=== PATIENT | male | born 1960 | race Caucasian/White ===

== ENCOUNTER 2017-05-21 12:19 | Emergency (ER) | payer SELFPAY ==
[~2017-05-21] VITALS: Ht 180.3 cm; Wt 95.0 kg
[2017-05-21 12:20] VITALS: BP 108/65
[2017-05-21] MEDS ORDERED: LITH150C PO (12:22)
[2017-05-21] MEDS ORDERED: LORAZEPAM 1MG TABLET PO ONE (14:15)
== END 2017-05-21 14:48 | disposition home or self-care (01) ==
LOC: ER 12:30
DX: G89.29 Other chronic pain (principal); M54.5 Low back pain; F41.9 Anxiety disorder, unspecified; F31.9 Bipolar disorder, unspecified; Z88.0 Allergy status to penicillin; Z91.013 Allergy to seafood
CPT/HCPCS: 99283

== ENCOUNTER 2017-06-03 13:47 | Emergency (ER) | payer MEDICARE, MEDICAID ==
[~2017-06-03] VITALS: Ht 177.8 cm; Wt 82.0 kg
[~2017-06-03 13:47] MED LIST: LITH150C PO
[2017-06-03] MEDS ORDERED: ONDANSETRON HCL 4MG/2ML VIAL IV STA (14:11)
[2017-06-03] MEDS ORDERED: KETOROLAC 30MG/ML VIAL IV STA (14:11)
[2017-06-03] MEDS ORDERED: MORPHINE SULFATE 10 MG/ML CPJ IV ONE (14:15)
[2017-06-03] MEDS ORDERED: SODIUM CHLORIDE 0.9% 1000ML BAG (SEPSIS BOLUS) IV ONE (14:15)
[2017-06-03] MEDS ORDERED: VANCOMYCIN 1 G PREMIX 200 ML IV ONE (14:15)
[2017-06-03] MEDS ORDERED: LEVOFLOXACIN 750MG PREMIX 150 ML IV ONE (14:15)
[2017-06-03 14:53] LABS: BASOPHILS % 0.4 % (0.0-2.0); HEMATOCRIT. 42.2 % (42.0-52.0); HEMOGLOBIN. 13.7 g/dL (14.0-18.0); LYMPHOCYTES % 22.5 % (20.0-50.0); MEAN CORPUSCULAR HEMOGLOBIN 30.2 pg (28.0-32.0); MEAN CORPUSCULAR VOLUME 92.9 fL (80.0-94.0); MEAN PLATELET VOLUME 8.1 fl (7.4-10.4); MONOCYTES % 3.5 % (2.0-8.0); NEUTROPHILS % 71.6 % (40.0-76.0); PLATELET 205 x1000/uL (130-400); RED BLOOD CELL COUNT 4.54 mill/uL (4.7-6.1); RED CELL DISTRIBUTION WIDTH 13.7 % (11.6-14.6)
[2017-06-03 14:57] LABS: D-DIMER 1.1 mg/L FEU (<0.50); PROTHROMBIN TIME 10.3 sec (9.4-11.6)
[2017-06-03 15:06] LABS: CARBON DIOXIDE 26 mEq/L (21-32); CHLORIDE 107 mEq/L (98-107); ETHANOL BLOOD < 10 mg/dL; TROPONIN I < 0.02 ng/mL (0.00-0.04)
[2017-06-03 16:13] VITALS: BP 119/71
[2017-06-03] MEDS ORDERED: GUAIFENESIN 200MG/10ML SUGAR FREE UDC PO PRN (17:15)
[2017-06-03] MEDS ORDERED: VANCOMYCIN 1 G PREMIX 200 ML IV SCH (17:15)
[2017-06-03] MEDS ORDERED: ACETAMINOPHEN 325MG TABLET PO PRN (17:15)
[2017-06-03] MEDS ORDERED: ONDANSETRON HCL 4MG/2ML VIAL IV PRN (17:15)
[2017-06-03] MEDS ORDERED: PIPERACILLIN/TAZ 3.375G PREMIX 50 ML IV SCH ×2 (17:15→18:00)
[2017-06-03] MEDS ORDERED: DOCUSATE SODIUM 100MG CAPSULE PO PRN (17:15)
[2017-06-03] MEDS ORDERED: CLONIDINE 0.1MG TABLET PO PRN (17:15)
[2017-06-03] MEDS ORDERED: IPRATROPIUM/ALBUTEROL 0.5-3(2.5)MG/3ML NEB INH PRN (17:15)
[2017-06-03] MEDS ORDERED: MAGNESIUM/ALUMINUM HYDROXIDE/SIMETHICONE 30ML UDC PO PRN (17:15)
[2017-06-03] MEDS ORDERED: DIPHENHYDRAMINE 50MG/ML VIAL IV PRN (17:15)
[2017-06-03] MEDS ORDERED: HALOPERIDOL LACTATE 5MG/ML VIAL IM PRN (18:00)
[2017-06-03] MEDS ORDERED: ENOXAPARIN 40MG/0.4ML SYR SUBCUT SCH (18:00)
[2017-06-03] MEDS ORDERED: LORAZEPAM 0.5MG TABLET PO PRN (18:00)
[2017-06-03] MEDS ORDERED: TRAMADOL 50MG TABLET PO PRN (18:00)
[2017-06-03] MEDS ORDERED: MORPHINE SULFATE 2 MG/ML CPJ (NOT FOR IM USE) IV PRN (18:00)
[2017-06-03] MEDS ORDERED: ZOLPIDEM TARTRATE 5MG TABLET PO PRN (20:30)
[2017-06-03] MEDS ORDERED: NA PHOS,M-B/NA PHOS,DI-BA ENEMA 118ML PR PRN (21:00)
[2017-06-03] MEDS ORDERED: FAMOTIDINE 20MG/2ML VIAL IV SCH (21:00)
[2017-06-04] MEDS ORDERED: ZINC SULFATE 220 MG ( 50 ) CAPSULE PO SCH (09:00)
== END 2017-06-03 17:47 | disposition left against medical advice (07) ==
LOC: ER 13:55 → EDBEDREQ 15:29 → SUPCPDRO 17:03 → ER 17:47 → CANRESERV 23:00 → ENRESERV 23:00 → CANBEDREQ 06-04 08:35
DX: L03.116 Cellulitis of left lower limb (principal); F31.9 Bipolar disorder, unspecified; F41.9 Anxiety disorder, unspecified; J44.9 Chronic obstructive pulmonary disease, unspecified; E83.52 Hypercalcemia; Z88.0 Allergy status to penicillin; Z91.013 Allergy to seafood; Z98.52 Vasectomy status
CPT/HCPCS: 36415; 71010; 73590; 80053; 80061; 83036; 83605; 83880; 84484; 85025; 85379; 85610; 87040; 93005; 93970; 96365; 96366; 96367; 96375; 99285; C1893; G0482; J1885; J1956; J2270; J2405; J3370; J7030